=== PATIENT | female | born 1935 | race African-American/Black ===

== ENCOUNTER 2025-01-01 14:10 | Emergency (ER) | payer MEDICARE, MEDICAID ==
[~2025-01-01] VITALS: Ht 170.2 cm; Wt 91.0 kg
[2025-01-01 14:37] VITALS: O2SAT 97
[2025-01-01] MEDS: ACETAMINOPHEN 325MG TABLET PO ONE (15:20)
[2025-01-01 16:33] VITALS: BP 157/97; PULSE 72; RESP 19; TEMP 36.8; O2SAT 97
== END 2025-01-01 16:52 | disposition home or self-care (01) ==
LOC: ER 14:10
DX: S09.90XA Unspecified injury of head, initial encounter (principal); I10 Essential (primary) hypertension; E11.9 Type 2 diabetes mellitus without complications; W19.XXXA Unspecified fall, initial encounter; Y93.89 Activity, other specified; Y92.89 Other specified places as the place of occurrence of the external cause; Y99.8 Other external cause status
CPT/HCPCS: 72170; 99284